=== PATIENT | female | born 1970 ===

== ENCOUNTER 2020-10-17 12:15 | Inpatient (IN) | payer OTHER ==
[~2020-10-17] VITALS: Ht 157.5 cm; Wt 77.1 kg
[2020-10-17] MEDS ORDERED: TENORMIN25 MG PO (14:42)
[2020-10-17] MEDS ORDERED: ZYRTEC10 MG PO (14:43)
[2020-10-17] MEDS ORDERED: LIPOFEN150 MG PO (14:43)
== END 2020-10-25 19:01 | disposition home or self-care (01) | DRG 330 ==
LOC: O/R 10-23 06:05 → SURG 10-23 06:05 → SURH 10-23 09:55 → MEDI 10-23 13:40 → SURG 10-23 13:41 → SURH 10-23 19:00 → SURG 10-25 19:01
PROVIDERS: ADMIT Colon & Rectal Surgery; ATTEND Colon & Rectal Surgery
PROC: 07BC0ZX Excision of Pelvis Lymphatic, Open Approach, Diagnostic (ICD-10-PCS; 2020-10-23)
PROC: 3E0F7SF Introduction of Other Gas into Respiratory Tract, Via Natural or Artificial Opening (ICD-10-PCS; 2020-10-23)
PROC: 3E0F7GC Introduction of Other Therapeutic Substance into Respiratory Tract, Via Natural or Artificial Opening (ICD-10-PCS; 2020-10-23)
PROC: 0DTF0ZZ Resection of Right Large Intestine, Open Approach (ICD-10-PCS; principal; 2020-10-23 09:55)
DX: D12.2 Benign neoplasm of ascending colon (principal); C18.2 Malignant neoplasm of ascending colon; J45.20 Mild intermittent asthma, uncomplicated; Z20.822 Contact with and (suspected) exposure to COVID-19; E78.00 Pure hypercholesterolemia, unspecified

== ENCOUNTER 2020-12-04 14:31 | Emergency (ER) | payer OTHER ==
[~2020-12-04] VITALS: Ht 157.5 cm; Wt 73.9 kg
[~2020-12-04 14:31] MED LIST: LIPOFEN150 MG PO; TENORMIN25 MG PO; ZYRTEC10 MG PO
[2020-12-04] MEDS ORDERED: CALCIUM500 M1 PO (14:41)
[2020-12-04] MEDS ORDERED: WELLBUTRIN SR150 MG PO (14:41)
[2020-12-04] MEDS ORDERED: LEVSIN0.125 MG PO (21:46)
[2020-12-04] MEDS ORDERED: INTESTINEX680 M2 PO (21:46)
[2020-12-04] MEDS ORDERED: PEPCID AC20 MG PO (21:46)
== END 2020-12-04 21:49 | disposition home or self-care (01) ==
LOC: ER 14:31
DX: R10.11 Right upper quadrant pain (principal)